=== PATIENT | female | born 1950 | race Caucasian/White ===

== ENCOUNTER 2021-05-10 15:03 | Inpatient (IN) | payer MEDICARE ==
[2021-05-10 16:36] LABS: INR-International Normal Ratio 1.3; PTT 28.6 sec (22.0-33.0); Prothrombin Time 14.6 sec (9.5-12.1)
[2021-05-10 16:37] LABS: Hemoglobin 11.5 g/dL (12.0-15.5); Mean Corpuscular HGB CONC 30.6 g/dL (32.0-36.0); Mean Corpuscular Hemoglobin 38.9 pg (27.0-33.0); Platelet Count 56 10x3/uL (150-450); RBC Distribution Width 17.5 % (11.5-14.5); Red Blood Cell (RBC) Count 2.96 10x6/uL (3.90-5.03); White Blood Cell (WBC) Count 9.5 10x3/uL (3.5-10.5)
[2021-05-10 16:45] LABS: ALT (SGPT) 9 U/L (8-55); AST (SGOT) 29 U/L (5-34); Albumin 3.6 g/dL (3.4-4.8); Alkaline Phosphatase 103 U/L (40-110); Anion Gap 17 mmol/L (10-20); BUN (Urea Nitrogen) 43 mg/dL (9.8-20.1); Bilirubin, Total 3.6 mg/dL (0.2-1.2); CK (CPK) 33 U/L (29-168); Calc. Creatinine Clearance 0 mL/min (70-130); Calcium 9.1 mg/dL (7.8-10.44); Carbon Dioxide 22 mmol/L (23-31); Chloride 108 mmol/L (98-107); Globulin 2.4 g/dL (2.4-3.5); Glucose 183 mg/dL (80-115); Lipase 38 U/L (8-78); Potassium 4.7 mmol/L (3.5-5.1); Sodium 142 mmol/L (136-145)
[2021-05-10 17:29] LABS: CKMB 2.8 ng/mL (0-6.6)
[2021-05-10 18:12] LABS: #Monocytes 0.4 10x3/uL (0.0-1.1); #Neutrophils 8.9 10x3/uL (1.5-8.4); %Basophils 0.1 % (0.0-2.0); %Lymphocytes 0.8 % (18.0-47.0); %Neutrophils 94.3 % (40.0-75.0); Mean Platelet Volume 13.5 fl (7.4-10.4)
[2021-05-10 18:16] LABS: Anisocytosis SLIGHT = 6-15 cells (100X) (0-5/hpf); Hypochromia SLIGHT = 6-15 cells (100X) (0-5/hpf); Macrocytosis MODERATE=16-30 cells (100X) (0-5/hpf); Poikilocytosis SLIGHT = 6-15 cells (100X) (0-5/hpf); Polychromasia SLIGHT = 2-3 cells (100X) (0-2/hpf)
[2021-05-10 18:17] LABS: Platelet Morphology Comment Appears Decreased; Schistocytes SLIGHT = 2-5 cells (100X) (0-1/hpf); Tear Drops SLIGHT = 2-5 cells (100X) (0-1/hpf)
[2021-05-10 19:17] LABS: Lactic Acid 2.1 mmol/L (0.5-2.2)
[2021-05-10] MEDS ORDERED: Aspirin Chewable 81 MG TAB ONE (20:10)
[2021-05-10] MEDS ORDERED: Furosemide 40 MG/4 ML VIAL ONE (20:10)
[2021-05-10 22:58] VITALS: BMI 19.5
[2021-05-11 04:23] LABS: Troponin I 0.297 ng/mL (< 0.028)
[2021-05-11 04:25] LABS: Anion Gap 17 mmol/L (10-20); BUN (Urea Nitrogen) 41 mg/dL (9.8-20.1); Calc. Creatinine Clearance 60 mL/min (70-130); Calcium 8.5 mg/dL (7.8-10.44); Carbon Dioxide 22 mmol/L (23-31); Chloride 106 mmol/L (98-107); Glucose 136 mg/dL (80-115); Potassium 4.3 mmol/L (3.5-5.1); Sodium 141 mmol/L (136-145)
[2021-05-11] MEDS ORDERED: Diltiazem 125 MG/25 ML ONE ×2 (04:30→17:50)
[2021-05-11 04:37] LABS: Ferritin 154.47 ng/mL (10-291); Thyroid Stimulating Hormone 1.1478 uIU/mL (0.35-4.94)
[2021-05-11] MEDS: Diltiazem 125 MG in Sodium Chloride 0.9% 100 ML IVPB SCH (04:37)
[2021-05-11 04:43] LABS: Magnesium 2.1 mg/dL (1.6-2.6)
[2021-05-11] MEDS ORDERED: Furosemide 40 MG/4 ML VIAL ONE ×2 (05:37→15:44)
[2021-05-11] MEDS: Furosemide 40 MG/4 ML VIAL SLOW IVP SCH ×2 (06:05→15:45)
[2021-05-11 06:30] LABS: #Monocytes 0.3 10x3/uL (0.0-1.1); #Neutrophils 4.1 10x3/uL (1.5-8.4); %Basophils 0.2 % (0.0-2.0); %Lymphocytes 2.9 % (18.0-47.0); %Monocytes 6.1 % (0.0-10.0); %Neutrophils 90.1 % (40.0-75.0); Hemoglobin 10.1 g/dL (12.0-15.5); Mean Corpuscular Hemoglobin 38.4 pg (27.0-33.0); Platelet Count 27 10x3/uL (150-450); RBC Distribution Width 17.1 % (11.5-14.5); Red Blood Cell (RBC) Count 2.63 10x6/uL (3.90-5.03); White Blood Cell (WBC) Count 4.6 10x3/uL (3.5-10.5)
[2021-05-11] MEDS ORDERED: Aspirin 81 mg Enteric Coated Tablet ONE (09:14)
[2021-05-11 09:17] LABS: Troponin I 0.342 ng/mL (< 0.028)
[2021-05-11] MEDS: Aspirin 81 mg Enteric Coated Tablet PO SCH (09:30)
[2021-05-11 11:14] LABS: Macrocytosis MODERATE=16-30 cells (100X) (0-5/hpf)
[2021-05-11 11:15] LABS: Ovalocytes SLIGHT = 2-5 cells (100X) (0-1/hpf)
[2021-05-11 11:16] LABS: Hypochromia SLIGHT = 6-15 cells (100X) (0-5/hpf); Platelet Morphology Comment Appears Decreased; Polychromasia SLIGHT = 2-3 cells (100X) (0-2/hpf)
[2021-05-11 23:35] LABS: HIV (1/2) Antibody/Antigen Non-Reactive (NonReactive); HIV 1/2 INDEX 0.14 S/CO (<1.00)
[2021-05-12] MEDS ORDERED: ALPRAZolam 1 MG TAB PO PRN (00:33)
[2021-05-12] MEDS: Furosemide 40 MG/4 ML VIAL SLOW IVP SCH ×2 (05:10→15:49)
[2021-05-12] MEDS: Diltiazem 125 MG in Sodium Chloride 0.9% 100 ML IVPB SCH ×2 (05:33→21:06)
[2021-05-12 08:38] LABS: #Monocytes 0.2 10x3/uL (0.0-1.1); #Neutrophils 3.8 10x3/uL (1.5-8.4); %Lymphocytes 3.3 % (18.0-47.0); %Monocytes 3.6 % (0.0-10.0); %Neutrophils 91.4 % (40.0-75.0); Hemoglobin 10.6 g/dL (12.0-15.5); Mean Corpuscular HGB CONC 31.8 g/dL (32.0-36.0); Mean Corpuscular Hemoglobin 37.7 pg (27.0-33.0); Mean Corpuscular Volume 118.5 fl (81.6-98.3); Mean Platelet Volume 9.6 fl (7.4-10.4); Platelet Count 43 10x3/uL (150-450); RBC Distribution Width 16.1 % (11.5-14.5); Red Blood Cell (RBC) Count 2.81 10x6/uL (3.90-5.03); White Blood Cell (WBC) Count 4.2 10x3/uL (3.5-10.5)
[2021-05-12 09:00] LABS: Anion Gap 16 mmol/L (10-20); BUN (Urea Nitrogen) 30 mg/dL (9.8-20.1); CK (CPK) 26 U/L (29-168); Calc. Creatinine Clearance 58 mL/min (70-130); Calcium 8.1 mg/dL (7.8-10.44); Carbon Dioxide 34 mmol/L (23-31); Chloride 93 mmol/L (98-107); Glucose 84 mg/dL (80-115); Potassium 3.4 mmol/L (3.5-5.1); Sodium 140 mmol/L (136-145)
[2021-05-12] MEDS: Aspirin 81 mg Enteric Coated Tablet PO SCH (10:15)
[2021-05-12] MEDS ORDERED: Metoprolol Tartrate 25 MG TAB PO SCH ×2 (15:30→15:31)
[2021-05-12] MEDS: Potassium Bicarbonate/Cit Ac 20 MEQ TAB PO SCH ×2 (15:48→18:02)
[2021-05-12] MEDS: Acetaminophen/Codeine 30-300mg Tablet PO PRN (17:53)
[2021-05-12] MEDS ORDERED: Digoxin 0.5 MG/2 ML AMP SLOW IVP SCH (18:00)
[2021-05-12 20:47] LABS: SARS-CoV-2 PCR by NAA Not Detected (NotDetected)
[2021-05-12] MEDS: Apixaban 5 MG TAB PO SCH (21:06)
[2021-05-13] MEDS: Acetaminophen 500 MG TAB PO PRN (01:46)
[2021-05-13 05:24] LABS: #Eosinphils 0.1 10x3/uL (0.0-0.5); #Monocytes 0.1 10x3/uL (0.0-1.1); #Neutrophils 3.4 10x3/uL (1.5-8.4); %Eosinophils 2.4 % (0.0-6.0); %Lymphocytes 4.2 % (18.0-47.0); %Monocytes 2.4 % (0.0-10.0); %Neutrophils 89.9 % (40.0-75.0); Hemoglobin 9.8 g/dL (12.0-15.5); Mean Corpuscular HGB CONC 32.2 g/dL (32.0-36.0); Mean Corpuscular Volume 117.8 fl (81.6-98.3); Mean Platelet Volume 11.9 fl (7.4-10.4); Platelet Count 44 10x3/uL (150-450); RBC Distribution Width 15.9 % (11.5-14.5); Red Blood Cell (RBC) Count 2.58 10x6/uL (3.90-5.03); White Blood Cell (WBC) Count 3.8 10x3/uL (3.5-10.5)
[2021-05-13 05:36] LABS: Anion Gap 13 mmol/L (10-20); BUN (Urea Nitrogen) 27 mg/dL (9.8-20.1); Calc. Creatinine Clearance 62 mL/min (70-130); Calcium 7.7 mg/dL (7.8-10.44); Carbon Dioxide 34 mmol/L (23-31); Chloride 94 mmol/L (98-107); Glucose 85 mg/dL (80-115); Potassium 3.6 mmol/L (3.5-5.1); Sodium 137 mmol/L (136-145)
[2021-05-13] MEDS ORDERED: Diltiazem 125 MG in Sodium Chloride 0.9% 100 ML IVPB SCH (07:15)
[2021-05-13 07:18] LABS: Anisocytosis SLIGHT = 6-15 cells (100X) (0-5/hpf); Elliptocytes SLIGHT = 2-5 cells (100X) (0-1/hpf); Macrocytosis SLIGHT = 6-15 cells (100X) (0-5/hpf); Microcytosis SLIGHT = 6-15 cells (100X) (0-5/hpf)
[2021-05-13] MEDS: Apixaban 5 MG TAB PO SCH ×2 (08:37→20:40)
[2021-05-13] MEDS: Digoxin 0.125 MG TAB PO SCH (08:37)
[2021-05-13] MEDS: Furosemide 40 MG TAB PO SCH (08:37)
[2021-05-13] MEDS ORDERED: Metoprolol Tartrate 25 MG TAB PO SCH (09:00)
[2021-05-13 10:31] LABS: Band 1 % (5-11); Eosinophils 2 % (0-10); Lymphocytes 3 % (21-51); MDiff Complete? YES; Macrocytosis MODERATE=16-30 cells (100X) (0-5/hpf); Mean Corpuscular HGB CONC 31.7 g/dL (32.0-36.0); Mean Corpuscular Hemoglobin 37.5 pg (27.0-33.0); Monocytes 2 % (0-10); Neutrophil 92 % (42-75); Platelet Count 41 10x3/uL (150-450); Platelet Morphology Comment Appears Decreased; Red Blood Cell (RBC) Count 2.67 10x6/uL (3.90-5.03); White Blood Cell (WBC) Count 3.4 10x3/uL (3.5-10.5)
[2021-05-13] MEDS: Folic Acid 1 MG TAB PO SCH (11:33)
[2021-05-13] MEDS: Thiamine 100 MG TAB PO SCH (11:33)
[2021-05-13 15:27] LABS: ANA Symphony (Qualitative) Negative (Negative); ANA Symphony (Quantitative) 0.3 Ratio (< 0.7 Negative)
[2021-05-14] MEDS: Acetaminophen 500 MG TAB PO PRN (03:06)
[2021-05-14 04:34] LABS: Anion Gap 10 mmol/L (10-20); BUN (Urea Nitrogen) 23 mg/dL (9.8-20.1); Calc. Creatinine Clearance 66 mL/min (70-130); Calcium 7.8 mg/dL (7.8-10.44); Carbon Dioxide 33 mmol/L (23-31); Chloride 94 mmol/L (98-107); Glucose 86 mg/dL (80-115); Potassium 3.2 mmol/L (3.5-5.1); Sodium 134 mmol/L (136-145)
[2021-05-14 06:34] LABS: #Eosinphils 0.1 10x3/uL (0.0-0.5); #Monocytes 0.1 10x3/uL (0.0-1.1); #Neutrophils 3.3 10x3/uL (1.5-8.4); %Eosinophils 3.2 % (0.0-6.0); %Lymphocytes 4.5 % (18.0-47.0); %Monocytes 3.2 % (0.0-10.0); %Neutrophils 87.8 % (40.0-75.0); Hemoglobin 10.3 g/dL (12.0-15.5); Mean Corpuscular Hemoglobin 37.7 pg (27.0-33.0); Mean Corpuscular Volume 114.3 fl (81.6-98.3); Platelet Count 42 10x3/uL (150-450); RBC Distribution Width 15.7 % (11.5-14.5); Red Blood Cell (RBC) Count 2.73 10x6/uL (3.90-5.03); White Blood Cell (WBC) Count 3.8 10x3/uL (3.5-10.5)
[2021-05-14 06:40] LABS: Anisocytosis SLIGHT = 6-15 cells (100X) (0-5/hpf); Macrocytosis MODERATE=16-30 cells (100X) (0-5/hpf); Tear Drops SLIGHT = 2-5 cells (100X) (0-1/hpf)
[2021-05-14 06:41] LABS: Platelet Morphology Comment Appears Decreased
[2021-05-14] MEDS: Folic Acid 1 MG TAB PO SCH (09:19)
[2021-05-14] MEDS: Apixaban 5 MG TAB PO SCH ×2 (09:19→20:19)
[2021-05-14] MEDS: Thiamine 100 MG TAB PO SCH (09:19)
[2021-05-14] MEDS: Digoxin 0.125 MG TAB PO SCH (09:19)
[2021-05-14] MEDS: Furosemide 40 MG TAB PO SCH (09:20)
[2021-05-14] MEDS: Acetaminophen/Codeine 30-300mg Tablet PO PRN (16:51)
[2021-05-14] MEDS ORDERED: Electrolyte Replacement Protocol 1 EACH FS SCH (17:00)
[2021-05-14] MEDS ORDERED: Potassium Chloride 20 MEQ TAB PO SCH (18:00)
[2021-05-15] MEDS: Acetaminophen 500 MG TAB PO PRN (01:19)
[2021-05-15] MEDS: Acetaminophen/Codeine 30-300mg Tablet PO PRN (01:30)
[2021-05-15 04:36] LABS: #Eosinphils 0.1 10x3/uL (0.0-0.5); #Monocytes 0.2 10x3/uL (0.0-1.1); #Neutrophils 4.6 10x3/uL (1.5-8.4); %Basophils 0.2 % (0.0-2.0); %Eosinophils 1.4 % (0.0-6.0); %Lymphocytes 3.7 % (18.0-47.0); %Monocytes 4.7 % (0.0-10.0); %Neutrophils 89.4 % (40.0-75.0); Hemoglobin 10.5 g/dL (12.0-15.5); Mean Corpuscular HGB CONC 32.7 g/dL (32.0-36.0); Mean Corpuscular Hemoglobin 36.8 pg (27.0-33.0); Mean Corpuscular Volume 112.6 fl (81.6-98.3); RBC Distribution Width 15.6 % (11.5-14.5); Red Blood Cell (RBC) Count 2.85 10x6/uL (3.90-5.03); White Blood Cell (WBC) Count 5.1 10x3/uL (3.5-10.5)
[2021-05-15 04:37] LABS: Platelet Count 48 10x3/uL (150-450)
[2021-05-15 04:43] LABS: Chloride 95 mmol/L (98-107); Potassium 3.6 mmol/L (3.5-5.1); Sodium 136 mmol/L (136-145)
[2021-05-15 04:44] LABS: Anion Gap 11 mmol/L (10-20); BUN (Urea Nitrogen) 24 mg/dL (9.8-20.1); Calc. Creatinine Clearance 60 mL/min (70-130); Calcium 8.1 mg/dL (7.8-10.44); Carbon Dioxide 34 mmol/L (23-31); Glucose 86 mg/dL (80-115)
[2021-05-15] MEDS ORDERED: Polyethylene Glycol 3350 17 GM Packet PO SCH (09:00)
[2021-05-15] MEDS: Folic Acid 1 MG TAB PO SCH (09:34)
[2021-05-15] MEDS: Thiamine 100 MG TAB PO SCH (09:34)
[2021-05-15] MEDS: Apixaban 5 MG TAB PO SCH (09:34)
[2021-05-15] MEDS: Furosemide 40 MG TAB PO SCH (09:34)
[2021-05-15] MEDS: Digoxin 0.125 MG TAB PO SCH (09:34)
[2021-05-15 10:32] LABS: Actual Bicarbonate (HCO3v) 33 mEq/L (22-28); Base Excess 7.3 mEq/L (-2.0 to +3.0); Calcium, Ionized (venous) 1.12 mmol/L (1.16-1.32); Chloride (VBG) 93 mmol/L (98-106); Hemoglobin (Hb) 11.6 g/dL (11.7-16.1); Potassium (VBG) 3.65 mmol/L (3.70-5.30); Puncture Site Other Site; RapidComm Collect By LAB.YY; Sodium 132.6 mmol/L (133-146); pH (venous) 7.42 (7.32-7.43)
[2021-05-15 22:01] VITALS: BP 130/78; TEMP 98.9
== END 2021-05-15 20:45 | DRG 291 ==
LOC: CSHERS 15:03 → CSHERHOLD 21:01 → CSHTELE 05-11 19:27
PROVIDERS: ADMIT Family Medicine; ATTEND Family Medicine
DX: I50.33 Acute on chronic diastolic (congestive) heart failure (principal); J96.21 Acute and chronic respiratory failure with hypoxia; Z68.1 Body mass index [BMI] 19.9 or less, adult; Z20.822 Contact with and (suspected) exposure to COVID-19; I48.91 Unspecified atrial fibrillation; J84.112 Idiopathic pulmonary fibrosis; R29.898 Other symptoms and signs involving the musculoskeletal system; D75.89 Other specified diseases of blood and blood-forming organs; Z96.651 Presence of right artificial knee joint; M79.81 Nontraumatic hematoma of soft tissue; R53.81 Other malaise; D53.9 Nutritional anemia, unspecified; D69.59 Other secondary thrombocytopenia; K74.3 Primary biliary cirrhosis; E53.8 Deficiency of other specified B group vitamins; R62.7 Adult failure to thrive; Z88.6 Allergy status to analgesic agent; Z79.82 Long term (current) use of aspirin; Z86.711 Personal history of pulmonary embolism; Z86.718 Personal history of other venous thrombosis and embolism; Z90.710 Acquired absence of both cervix and uterus; Z98.890 Other specified postprocedural states
CPT/HCPCS: 36415; 36430; 70450; 70551; 71045; 72146; 72148; 80048; 80053; 82550; 82553; 82607; 82728; 82746; 82805; 83605; 83690; 83735; 83880; 84443; 84484; 85025; 85041; 85048; 85060; 85610; 85730; 86038; 86140; 86225; 86850; 86900; 86901; 87040; 87389; 93005; 93010; 93306; 94760; 94762; 96374; J1160; J1940; J3490; P9035; U0003; U0005

== ENCOUNTER 2021-10-03 18:57 | Emergency (ER) | payer MEDICARE | END 2021-10-03 22:49 | disposition home or self-care (01) | LOC: CSHERS 18:57 | DX: M79.605 Pain in left leg (principal); Z86.718 Personal history of other venous thrombosis and embolism; E78.2 Mixed hyperlipidemia ==

== ENCOUNTER 2021-11-26 09:37 | Outpatient (CLI) | payer MEDICARE ==
[2021-11-26] MEDS ORDERED: Iopamidol 370 76% 100 ML VIAL ONE (12:52)
== END 2021-11-26 09:38 | disposition home or self-care (01) ==
LOC: CSHCT 09:37
DX: J84.9 Interstitial pulmonary disease, unspecified (principal); K74.3 Primary biliary cirrhosis; I27.20 Pulmonary hypertension, unspecified; R59.0 Localized enlarged lymph nodes; I28.1 Aneurysm of pulmonary artery; I35.9 Nonrheumatic aortic valve disorder, unspecified; R91.1 Solitary pulmonary nodule
CPT/HCPCS: 71275; 82565; Q9967

== ENCOUNTER 2022-06-11 17:45 | Emergency (ER) | payer MEDICARE ==
[2022-06-11] MEDS ORDERED: Lidocaine 1% (PF) 30 ML VIAL ONE (18:36)
== END 2022-06-11 19:42 | disposition home or self-care (01) ==
LOC: CSHERS 17:45
DX: S52.501A Unspecified fracture of the lower end of right radius, initial encounter for closed fracture (principal); E78.2 Mixed hyperlipidemia; W18.30XA Fall on same level, unspecified, initial encounter
CPT/HCPCS: 25660; J2001

== ENCOUNTER 2022-07-21 12:20 | Day surgery (SDC) | payer MEDICARE ==
[2022-07-20 13:34] VITALS: BMI 17.2
[~2022-07-21 12:20] MED LIST: Bupivacaine 0.25% HCL 30 ML VIAL ONE; Lidocaine 1% (PF) 30 ML VIAL ONE
[2022-07-21 13:22] LABS: Hemoglobin 13.3 g/dL (12.0-15.5); Mean Corpuscular HGB CONC 31.8 g/dL (32.0-36.0); Mean Corpuscular Hemoglobin 30.9 pg (27.0-33.0); Mean Platelet Volume 11.4 fl (7.4-10.4); Platelet Count 175 10x3/uL (150-450); RBC Distribution Width 14.4 % (11.5-14.5); Red Blood Cell (RBC) Count 4.31 10x6/uL (3.90-5.03); White Blood Cell (WBC) Count 5.3 10x3/uL (3.5-10.5)
[2022-07-21 13:36] LABS: INR-International Normal Ratio 1.1; PTT 28.2 sec (22.0-33.0); Prothrombin Time 12.2 sec (9.5-12.1)
[2022-07-21 13:37] LABS: Anion Gap 18 mmol/L (10-20); BUN (Urea Nitrogen) 21 mg/dL (9.8-20.1); Calc. Creatinine Clearance 40 mL/min (70-130); Calcium 10.4 mg/dL (7.8-10.44); Carbon Dioxide 24 mmol/L (23-31); Chloride 101 mmol/L (98-107); Estimated GFR 60; Glucose 86 mg/dL (83-110); Potassium 3.9 mmol/L (3.5-5.1); Sodium 139 mmol/L (136-145)
[2022-07-21] MEDS ORDERED: Propofol 1,000 MG/100 ML VIAL IV ONE (15:20)
[2022-07-21] MEDS ORDERED: Ropivacaine 0.5% HCl/PF (150 MG/30 ML VIAL) ONE (15:22)
[2022-07-21] MEDS ORDERED: Lidocaine 1% MPF 2 ML VIAL ONE (15:23)
[2022-07-21] MEDS ORDERED: CEFAZOLIN 2 GM VIAL ONE (15:23)
[2022-07-21] MEDS ORDERED: Midazolam HCl 2 mg/2 ml Vial ONE (15:31)
[2022-07-21] MEDS ORDERED: Fentanyl 100 MCG/2 ML VIAL ONE (15:31)
[2022-07-21] MEDS ORDERED: PHENYLEPHRINE-NS 100 MCG/ML 10 ML SYRINGE ONE (16:29)
[2022-07-21] MEDS ORDERED: Phenylephrine 10 MG/ML VIAL ONE (16:29)
[2022-07-21] MEDS ORDERED: MINERAL OIL/WHITE PETROLATUM 3.5 GM TUBE ONE (18:40)
[2022-07-21] MEDS ORDERED: ePHEDrine Sulfate 50 MG/10 ML VIAL ONE (19:14)
[2022-07-21] MEDS ORDERED: oxyCODONE 5 MG TAB ONE (20:02)
== END 2022-07-21 21:15 | disposition home or self-care (01) ==
LOC: CSHSDC 12:20
PROVIDERS: ATTEND Surgery Surgery of the Hand
PROC: 0LQ73ZZ Repair Right Hand Tendon, Percutaneous Approach (ICD-10-PCS; principal; 2022-07-21)
PROC: 0PSH04Z Reposition Right Radius with Internal Fixation Device, Open Approach (ICD-10-PCS; 2022-07-21)
DX: S52.611A Displaced fracture of right ulna styloid process, initial encounter for closed fracture (principal); S52.501A Unspecified fracture of the lower end of right radius, initial encounter for closed fracture; S66.314A Strain of extensor muscle, fascia and tendon of right ring finger at wrist and hand level, initial encounter; I48.91 Unspecified atrial fibrillation; G47.33 Obstructive sleep apnea (adult) (pediatric); I49.5 Sick sinus syndrome; I50.30 Unspecified diastolic (congestive) heart failure; Z79.899 Other long term (current) drug therapy; M13.841 Other specified arthritis, right hand; Z79.01 Long term (current) use of anticoagulants; Z88.5 Allergy status to narcotic agent; Z87.891 Personal history of nicotine dependence
CPT/HCPCS: 80048; 85027; 85610; 85730; 93005; C1713; C1776; J2001; J2250; J2370; J2704; J2795; J3010; S0020